=== PATIENT | male | born 1995 | race Caucasian/White ===

== ENCOUNTER 2019-12-17 16:07 | Emergency (ER) | payer OTHER ==
[~2019-12-17] VITALS: Ht 182.9 cm; Wt 99.8 kg
[2019-12-17] MEDS ORDERED: ACETAMINOPHEN325 M1 PO (16:20)
[2019-12-17] MEDS ORDERED: NORCO 5-325 TA1 EAC1 PO (16:55)
[2019-12-17] MEDS ORDERED: BACTRIM DS TAB1 EAC1 PO (16:55)
[2019-12-17 17:05] VITALS: BP 165/83
== END 2019-12-17 17:06 | disposition home or self-care (01) ==
LOC: M.ERS 16:07
DX: L02.31 Cutaneous abscess of buttock (principal)

== ENCOUNTER 2020-03-10 07:27 | Emergency (ER) | payer OTHER ==
[~2020-03-10] VITALS: Ht 182.9 cm; Wt 99.8 kg
[~2020-03-10 07:27] MED LIST: ACETAMINOPHEN325 M1 PO; BACTRIM DS TAB1 EAC1 PO; NORCO 5-325 TA1 EAC1 PO
[2020-03-10 08:18] LABS: URINE BILIRUBIN NEGATIVE (Negative); URINE BLOOD 2+ (Negative); URINE CLARITY CLEAR; URINE COLOR YELLOW; URINE GLUCOSE-RANDOM NEGATIVE (Negative); URINE KETONES NEGATIVE (Negative); URINE LEUKOCYTES NEGATIVE (Negative); URINE NITRITE NEGATIVE (Negative); URINE PROTEIN 1+ (Negative); URINE UROBILINOGEN 0.2 E.U./dl (0.2-1.0)
[2020-03-10 08:28] LABS: BACTERIA 1-9 Few /HPF (None Seen); CASTS None Seen /LPF (None Seen); CRYSTALS None Seen /LPF (None Seen); MUCUS 0-3 Light strn/LPF (None Seen); SQUAMOUS 0-3 Few /LPF (0-3); URINE RBC 3-10 Few /HPF (0-2); URINE WBC 6-15 Few /HPF (0-5)
[2020-03-10] MEDS ORDERED: NAPROSYN500 MG PO (09:29)
[2020-03-10] MEDS ORDERED: FLEXERIL PO (09:29)
[2020-03-10 10:16] VITALS: BP 139/88
== END 2020-03-10 10:18 | disposition home or self-care (01) ==
LOC: M.ERS 07:27
PROVIDERS: Emergency Medicine
DX: M54.6 Pain in thoracic spine (principal); R10.11 Right upper quadrant pain

== ENCOUNTER 2021-04-21 13:26 | Emergency (ER) | payer OTHER ==
[~2021-04-21] VITALS: Ht 182.9 cm; Wt 99.8 kg
[~2021-04-21 13:26] MED LIST changes: +FLEXERIL PO; +NAPROSYN500 MG PO
[2021-04-21] MEDS ORDERED: HYDROCODON-ACE1 EAC7 PO (14:30)
[2021-04-21] MEDS ORDERED: IBUPROFEN 800800 M1 PO (15:08)
[2021-04-21 15:17] VITALS: BP 144/98
== END 2021-04-21 15:18 | disposition home or self-care (01) ==
LOC: M.ERS 13:26
DX: S62.396A Other fracture of fifth metacarpal bone, right hand, initial encounter for closed fracture (principal); F17.210 Nicotine dependence, cigarettes, uncomplicated; W22.8XXA Striking against or struck by other objects, initial encounter; Y93.89 Activity, other specified; Y92.89 Other specified places as the place of occurrence of the external cause; Y99.8 Other external cause status

== ENCOUNTER 2021-06-24 17:52 | Emergency (ER) | payer OTHER ==
[~2021-06-24] VITALS: Ht 182.9 cm; Wt 99.8 kg
[~2021-06-24 17:52] MED LIST changes: +HYDROCODON-ACE1 EAC7 PO; +IBUPROFEN 800800 M1 PO
[2021-06-24] MEDS ORDERED: TRAMADOL 50 MG50 MG PO (19:53)
[2021-06-24] MEDS ORDERED: NAPROSYN500 MG PO (19:53)
[2021-06-24 20:20] VITALS: BP 132/74
== END 2021-06-24 20:20 | disposition home or self-care (01) ==
LOC: M.ERS 17:52
DX: M79.662 Pain in left lower leg (principal); F17.210 Nicotine dependence, cigarettes, uncomplicated